=== PATIENT | male | born 1990 | race African-American/Black ===

== ENCOUNTER 2017-05-11 16:09 | Emergency (ER) | payer SELFPAY ==
[2017-05-11 16:31] LABS: BASOPHILS 0 % (0-2); EOSINOPHILS 0.1 % (0-7); HEMATOCRIT 45.9 % (42.0-54.0); HEMOGLOBIN 15.6 g/dL (13.5-17.5); IMMATURE GRANULOCYTES 0.3 % (0-5); LYMPHOCYTES 4.3 % (15-50); MCH 31.3 pg (26.0-34.0); MEAN PLATELET VOLUME 10.8 fL (7.4-10.4); MONOCYTES 6.6 % (2-11); NEUTROPHILS 88.7 % (40-80); PLATELET COUNT 201 10x3/uL (130-400); RBC 4.99 10x6/uL (4.20-6.10); RDW 13.4 % (11.5-14.5); WBC 7.5 10x3/uL (4.8-10.8)
[2017-05-11 16:44] LABS: ALBUMIN 4.8 g/dL (3.4-5.0); ALKALINE PHOSPHATASE 79 U/L (46-116); ALT (SGPT) 30 U/L (10-68); BILIRUBIN - TOTAL 2.21 mg/dL (0.2-1.3); CALC OSMOLALITY 279 mosm/kg (275-300); CALCIUM 9.7 mg/dL (8.5-10.1); CARBON DIOXIDE 31.8 mmol/L (21.0-32.0); CHLORIDE - SERUM 101 mmol/L (98-107); GLUCOSE 104 mg/dL (74-106); POTASSIUM - SERUM 4.4 mmol/L (3.5-5.1); PROTEIN - SERUM 8.7 g/dL (6.4-8.2); SODIUM 141 mmol/L (136-145); UREA NITROGEN 10 mg/dL (7-18); eGFR NON AFRICAN AMERICAN > 90 mL/min (90-120)
== END 2017-05-11 18:53 | disposition home or self-care (01) ==
LOC: D.ER 16:09
PROVIDERS: Family Medicine
DX: K29.70 Gastritis, unspecified, without bleeding (principal)

== ENCOUNTER 2019-12-11 10:42 | Emergency (ER) | payer SELFPAY ==
[~2019-12-11] VITALS: Ht 180.3 cm; Wt 65.0 kg
[2019-12-11 10:46] VITALS: Ht 180.3 cm; Wt 65.0 kg
[2019-12-11] MEDS ORDERED: ACETAMINOPHEN500 M1 PO (11:26)
[2019-12-11] MEDS ORDERED: IBUPROFEN800 MG PO (11:26)
[2019-12-11] MEDS ORDERED: CYCLOBENZAPRINE10 MG PO (11:26)
[2019-12-11 11:31] VITALS: BP 114/62
== END 2019-12-11 11:31 | disposition home or self-care (01) ==
LOC: D.ER 10:42
DX: S90.31XA Contusion of right foot, initial encounter (principal); M79.18 Myalgia, other site; M79.671 Pain in right foot; Y93.02 Activity, running

== ENCOUNTER 2020-03-01 13:55 | Emergency (ER) | payer SELFPAY ==
[~2020-03-01] VITALS: Ht 180.3 cm; Wt 69.1 kg
[~2020-03-01 13:55] MED LIST: ACETAMINOPHEN500 M1 PO; CYCLOBENZAPRINE10 MG PO; IBUPROFEN800 MG PO
[2020-03-01 14:05] VITALS: Ht 180.3 cm; Wt 69.1 kg
[2020-03-01] MEDS ORDERED: METHOCARBAMOL500 MG PO (14:52)
[2020-03-01] MEDS ORDERED: TORADOL10 MG PO (14:52)
[2020-03-01 15:56] VITALS: BP 120/74
== END 2020-03-01 15:55 | disposition home or self-care (01) ==
LOC: D.ER 13:55
DX: M47.816 Spondylosis without myelopathy or radiculopathy, lumbar region (principal)